=== PATIENT | male | born 1975 | race Caucasian/White ===

== ENCOUNTER → 2019-02-26 | Outpatient (CLI) | payer BC, SELFPAY ==
--- NOTE | 2019-02-26 11:12 | MRI_ITS ---
STUDY: MRI CERVICAL SPINE WITH AND WITHOUT CONTRAST REASON FOR EXAM: Male, 43 years old. Myelitis, numbness and tingling in left hand TECHNIQUE: Standardized fat and water weighted pulse sequences were obtained in the sagittal and axial following administration of 15 IV Dotarem. COMPARISON: None FINDINGS: Normal foramen magnum and brainstem-cervical cord junction. Normal craniovertebral junction. Normal anterior atlantoaxial articulation. Normal odontoid process. Normal cervical lordosis. Normal vertebral bodies and posterior osseous elements. C2-3: Normal endplates. Normal disc height, signal and morphology. Normal central canal and intervertebral neural foramina. C3-4: Normal endplates. There is central, right paracentral and right foraminal disc bulge. Right uncovertebral hypertrophy. There is mild ventral thecal sac narrowing. Marked right foraminal narrowing.. C4-5: Normal endplates. There is mild annular disc bulge. Moderate bilateral foraminal narrowing. C5-6: Normal endplates. There is mild annular disc bulge. Mild ventral thecal sac narrowing. Moderate right and marked left foraminal narrowing. C6-7: There is marked intervertebral disc space narrowing. There is mild annular disc bulge. Mild ventral thecal sac narrowing. Moderate to marked bilateral foraminal narrowing. C7-T1: Normal endplates. Normal disc height, signal and morphology. Normal central canal . There is left uncovertebral hypertrophy causing marked left foraminal narrowing. Normal cervical cord. Normal visualized soft tissue structures. MRI/Spine Cervical W/WO Contrast IMPRESSION: Moderate to marked multilevel degenerative disc disease with multilevel foraminal narrowing as described in detail above. Electronically Signed: Petty Echevarria, at 13:34 EDT Tel , Service support ,
== END | disposition home or self-care (01) ==
LOC: MRI 11:01
PROVIDERS: Family Provider Family Medicine; PCP Family Medicine; Referring Provider Psychiatry & Neurology Neurology; Visit Provider Psychiatry & Neurology Neurology
DX: G04.91 Myelitis, unspecified (principal)
CPT/HCPCS: 72156; A9575

== ENCOUNTER → 2022-01-18 | Outpatient (CLI) | payer BC, SELFPAY ==
--- NOTE | 2022-01-18 08:29 | US_ITS ---
STUDY: ABDOMINAL ULTRASOUND REASON FOR EXAM: Male, 46 years old. ELEVATED liver ENZYMES TECHNIQUE: Transabdominal ultrasound was performed with real-time and static phan scale imaging. TECHNICAL QUALITY: Adequate. COMPARISON: None. FINDINGS: Liver: The liver is enlarged and measures 20.1 cm. There is increased echogenicity consistent with fatty infiltration. The bile ducts are within normal limits. There is hepatic color flow. The direction of portal flow is hepatopetal. There is no demonstrated mass lesion. Portal vein measurement: Gallbladder: Normal distended gallbladder. The gallbladder wall measures 2.4 mm. There is a negative sonographic Kelley''s sign. There is no pericholecystic fluid. There are no gallstones. Common Bile Duct (C.B.D.): The common bile duct measures 3.2 mm. Pancreas: Normal size of the head, body and tail of the pancreas. There is increased echogenicity of the pancreas. There is no demonstrated pancreatic mass or cyst. Spleen: Normal size of the spleen. The spleen measures 11.7 cm x 5.6 cm x 5.3 cm. Right Kidney: Normal size of the right kidney. The right kidney measures 10.7 cm x 4.9 cm x 4.5 cm. Normal renal cortex. The right cortex measures 1.4 cm. There is no demonstrated renal mass or cyst. There is no right hydronephrosis. Left Kidney: Normal size of the left kidney. The left kidney measures 10.4 cm x 5.1 cm x 4.9 cm. Normal renal cortex. The left cortex measures 1.5 cm. There is no demonstrated renal mass or cyst. There is no left hydronephrosis. There is no ascites. US/Abdomen Complete IMPRESSION: Hepatomegaly and diffuse fatty infiltration of the liver. Electronically Signed: Byron Penaloza MD at 12:27 EDT ,
== END | disposition home or self-care (01) ==
PROVIDERS: PCP Family Medicine; Referring Provider Physician Assistant; Visit Provider Physician Assistant
DX: R74.01 Elevation of levels of liver transaminase levels (principal)
CPT/HCPCS: 76700

== ENCOUNTER → 2022-06-25 | Outpatient (CLI) | payer BC, SELFPAY ==
--- NOTE | 2022-06-25 08:08 | MRI_ITS ---
STUDY: MRI CERVICAL SPINE WITHOUT CONTRAST REASON FOR EXAM: Male, 46 years old. Cervical radiculopathy. Neck pain with tingling and numbness in arms and hands. TECHNIQUE: Standardized fat and water weighted pulse sequences were obtained in the sagittal and axial planes. COMPARISON: MRI cervical spine with and without contrast 02/26/2019. FINDINGS: Normal foramen magnum and brainstem-cervical cord junction. Normal craniovertebral junction. Normal anterior atlantoaxial articulation. Normal odontoid process. Normal cervical lordosis. Normal vertebral bodies and posterior osseous elements. C2-3: Normal endplates. Normal disc height, signal and morphology. Normal central canal and intervertebral neural foramina. C3-4: Normal endplates. Normal disc height and morphology. Normal central canal and left intervertebral neural foramen. Moderate pronounced stenosis of right intervertebral neural foramen due to osteophyte arising from the right uncovertebral joint. This is unchanged. C4-5: Normal endplates. Mild disc space height narrowing. Normal central canal and left intervertebral neural foramen. Mild stenosis of the right intervertebral neural foramen is unchanged. C5-6: Normal endplates. Mild disc space height narrowing. Normal central canal.. Moderate stenosis of left intervertebral neural foramen. Mild stenosis of the right intervertebral neural foramen. This level is unchanged. C6-7: Mild Modic type II degenerative vertebral marrow fat infiltration underneath the vertebral endplates. Moderate disc space height narrowing. Normal central canal. Moderate stenosis of the intervertebral neural foramina are unchanged. C7-T1: Minimal Modic type II degenerative vertebral marrow fat infiltration underneath the vertebral endplates. Mild disc space height narrowing. Normal central canal. Moderate stenosis of the right intervertebral neural foramen is a new finding. Moderate stenosis of the left intervertebral neural foramen is unchanged. T1-T2: (Sagittal only). Minimal anterior wedging of the T1 inferior endplate is unchanged. Normal disc height and morphology. Normal central canal and intervertebral neural foramina. T2-T3 and T3-T4: (Sagittal only). Normal endplates. Minimal disc space height narrowing. Normal central canal and intervertebral neural foramina. These levels are unchanged. T4-T5: (Sagittal only). Normal endplates. Normal disc height, signal and morphology. Normal central canal and intervertebral neural foramina. Normal cervical cord. Normal included portions of the upper thoracic spinal cord, brainstem and cerebellum. 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 Mucus retention cysts and mucosal thickening in the floors of the maxillary sinuses are unchanged. Normal visualized soft tissue structures. MRI/Spine Cervical (Routine) IMPRESSION: 1. No MRI evidence of cervical extruded disc fragment. 2. 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 3. Mild stenosis of the right C4-C5 intervertebral neural foramen is unchanged. 4. Moderate stenosis of the left C5-C6 intervertebral neural foramen and mild stenosis of the right C5-C6 intervertebral neural foramen are unchanged. 5. Moderate stenosis of the C6-C7 intervertebral neural foramina are unchanged. 6. Moderate stenosis of the right C7-T1 intervertebral neural foramen is a new finding but the moderate stenosis of the left C7-T1 intervertebral neural foramen is unchanged. 7. Normal cervical spinal cord. 8. 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 Electronically Signed: Chaitanya Kemp MD at 9:36 EST ,
== END | disposition home or self-care (01) ==
LOC: MRI 08:02
PROVIDERS: PCP Family Medicine; Visit Provider Physician Assistant
DX: M54.12 Radiculopathy, cervical region (principal); M99.61 Osseous and subluxation stenosis of intervertebral foramina of cervical region; M50.30 Other cervical disc degeneration, unspecified cervical region; M48.03 Spinal stenosis, cervicothoracic region
CPT/HCPCS: 72141

== ENCOUNTER → 2024-12-16 | Outpatient (CLI) | payer BC, SELFPAY ==
--- NOTE | 2024-12-16 08:52 | ECHOD_ITS ---
Reason For Study Reason For Study: MURMUR Procedure This was a 2D Doppler, Color Flow transthoracic echocardiogram. Exam performed in department. Left Ventricle Normal LV size. The left ventricular ejection fraction is 65 %. No regional wall motion abnormalities noted. Right Ventricle Normal RV size. Normal systolic function. Atria Normal left atrium. Normal right atrium. Mitral Valve Normal mitral valve. Tricuspid Valve Normal tricuspid valve. Mild tricuspid valve insufficiency. Pulmonary artery systolic pressure is 28 mmHg. Aortic Valve Trisinus/trileaflet aortic valve. Moderate focal aortic valve thickening. Mild (1+) aortic valve insufficiency. Pulmonic Valve The pulmonic valve is not well visualized. Great Vessels Normal aortic root. The pulmonary artery is normal size. Normal inferior vena cava. Pericardium/Pleural No pericardial effusion. MMode/2D Measurements & Calculations LVIDd: 4.3 cm IVSd: 0.96 cm LVOT diam: 2.0 cm LVIDs: 2.8 cm LVPWd: 0.84 cm LVOT area: 3.2 cm2 RVDd: 3.9 cm FS: 33.5 % Ao root diam: 3.2 cm LAV(MOD-bp): 51.6 ml LVAd ap4: 29.7 cm2 LAV(MOD-bp) Indexed: 26.2 ml/m2 LVLd ap4: 8.0 cm LAV(MOD-sp2): 47.8 ml EDV(MOD-sp4): 90.8 ml LAV(MOD-sp4): 52.2 ml EDV(sp4-el): 93.8 ml LVAs ap4: 16.3 cm2 LVLs ap4: 7.1 cm ESV(MOD-sp4): 31.8 ml ESV(sp4-el): 31.9 ml EF(MOD-sp4): 65.0 % EF(sp4-el): 66.0 % SV(MOD-sp4): 59.0 ml SV(sp4-el): 61.9 ml LA A4 area: 18.8 cm2 SI(MOD-sp4): 29.9 ml/m2 LA dimension(2D): 3.2 cm RA A4 area: 16.5 cm2 TAPSE: 2.5 cm Time Measurements MV dec time: 0.27 sec Doppler Measurements & Calculations MV E max dangelo: 124.4 cm/sec Lat Peak E' Dangelo: 12.1 cm/sec Med Peak E' Dangelo: 9.8 cm/sec MV A max dangelo: 83.9 cm/sec E/E' lat: 10.2 E/E' med: 12.7 MV E/A: 1.5 Ao V2 max: 211.9 cm/sec AI max dangelo: 332.5 cm/sec LV V1 max: 158.1 cm/sec Ao max P.0 mmHg AI max P.2 mmHg LV V1 max P.0 mmHg Ao V2 mean: 142.2 cm/sec LV V1 mean P.1 mmHg Ao mean P.2 mmHg AI dec slope: 79.6 cm/sec2 LV V1 mean: 106.3 cm/sec Ao V2 VTI: 46.4 cm AI P1/2t: 1223 msec LV V1 VTI: 38.9 cm AV (velocity ratio): 0.84 TORI(I,D): 2.6 cm2 TORI(V,D): 2.4 cm2 SV(LVOT): 122.7 ml PA V2 max: 109.8 cm/sec TR max dangelo: 242.7 cm/sec TR max P.6 mmHg ECHO/Echo Complete Interpretation Summary Normal LV size. Moderate focal aortic valve thickening. The left ventricular ejection fraction is 65 %. Pulmonary artery systolic pressure is 28 mmHg. Ordering Physician: Raj Guerrero Referring Physician: ASHA VALENCIA Performed By: Diana Warren RDCS
== END | disposition home or self-care (01) ==
PROVIDERS: PCP Family Medicine; Referring Provider Physician Assistant; Visit Provider Physician Assistant
DX: R01.1 Cardiac murmur, unspecified (principal)
CPT/HCPCS: 93306